=== PATIENT | male | born 1965 | race American Indian/Alaskan Native ===

== ENCOUNTER 2016-12-23 23:37 | Emergency (ER) | payer OTHER, SELFPAY ==
[2016-12-23 23:37] VITALS: BMI 35.4
[2016-12-24 00:09] VITALS: RESP 16; TEMP 98.1
[2016-12-24] MEDS ORDERED: cefTRIAXone (Rocephin) 250 mg Inj IM STA (00:22)
--- NOTE | 2016-12-24 00:32 | ED PDOC ---
Arrival/HPI - General Time Seen by Provider: 12/24/16 00:07 - History of Present Illness Narrative History of Present Illness (Text): 51 year old male with no reported medical history who presents with concerns for jesus STI after having intercourse and the condom broke. He reports non-specific symptoms of "just not feeling right down there." He denies pain with urination, discharge, polyuria, dysuria, inguinal swelling, fever, chills, arthralgia, or myalgias. He denies having sex for money, sex with other men, prostitutes, or engaging in anal sex. He admits to alcohol use, but denies illicit drug use. 12/24/16 00:25 (Sarah Lopez) Past Medical History - Provider Review Nursing Documentation Reviewed: Yes - Past History Past History: Non-Contributing - Infectious Disease Hx of Infectious Diseases: None - Tetanus Immunization Tetanus Immunization: Unknown - Past Medical History Past Medical History: No Previous - Psychiatric Hx Depression: No Hx Substance Use: No - Surgical History Hx Orthopedic Surgery: Yes (rotator cuff) - Suicidal Assessment Feels Threatened In Home Enviroment: No Family/Social History - Physician Review Nursing Documentation Reviewed: Yes Family/Social History: Unknown Family HX Smoking Status: Never Smoked Hx Alcohol Use: Yes Frequency of alcohol use: Socially Hx Substance Use: No Hx Substance Use Treatment: No Allergies/Home Meds Allergies/Adverse Reactions: Allergies No Known Allergies Allergy (Verified 06/16/13 22:09) Review of Systems - Review of Systems Constitutional: absent: Fatigue, Weight Change, Fevers Eyes: Other (eye heaviness). absent: Vision Changes, Photophobia ENT: absent: Hearing Changes, Tinnitus, Epistaxis, Sinus Congestion Respiratory: absent: SOB, Cough, Sputum Cardiovascular: absent: Chest Pain, Palpitations, Edema Gastrointestinal: absent: Abdominal Pain, Stool Changes, Constipation, Diarrhea , Nausea Genitourinary Male: absent: Dysuria, Frequency, Hematuria Musculoskeletal: absent: Arthralgias, Back Pain, Neck Pain, Joint Swelling Skin: absent: Rash, Pruritis, Skin Lesions Neurological: absent: Headache, Dizziness, Focal Weakness Endocrine: absent: Diaphoresis, Polyuria, Polydipsia Hemo/Lymphatic: absent: Easy Bleeding, Easy Bruising Psychiatric: absent: Anxiety, Depression Physical Exam Temperature: Afebrile Blood Pressure: Normal Pulse: Regular Respiratory Rate: Normal Appearance: Positive for: Well-Appearing, Non-Toxic Pain Distress: None Mental Status: Positive for: Alert and Oriented X 3 - Systems Exam Head: Present: Atraumatic, Normocephalic Pupils: Present: PERRL Extroacular Muscles: Present: EOMI Conjunctiva: Present: Injected Mouth: Present: Moist Mucous Membranes. No: Dry Pharnyx: Present: Normal. No: ERYTHEMA, EXUDATE Neck: Present: Normal Range of Motion. No: JVD, Lymphadenopathy Respiratory/Chest: Present: Clear to Auscultation, Good Air Exchange Cardiovascular: Present: Regular Rate and Rhythm, Normal S1, S2 Abdomen: Present: Normal Bowel Sounds. No: Tenderness, Distention, Peritoneal Signs, Guarding Genitourinary Male: Present: Normal External Genitalia, Other (penis is without lesions or discharge, no testicular swelling or erythema, inguinal area without any lymphadenopathy). No: Penile Discharge, Testicle Tenderness, Penile Swelling, Masses, Erythema, Testicle Swelling Back: Present: Normal Inspection. No: CVA Tenderness Upper Extremity: Present: Normal Inspection. No: Cyanosis, Edema Lower Extremity: Present: Normal Inspection. No: Edema, CALF TENDERNESS Neurological: Present: CN II-XII Intact, Speech Normal, Motor Func Grossly Intact, Normal Sensory Function Skin: Present: Warm, Dry, Normal Color Lymphatic: No: Inguinal Adenopathy Psychiatric: Present: Alert, Oriented x 3, Normal Insight, Normal Concentration Vital Signs Temp Pulse Resp BP Pulse Ox 12/24/16 01:45 87 16 132/85 99 12/24/16 00:09 98.1 F 85 16 144/73 98 Medical Decision Making ED Course and Treatment: Patient is reports and appears to have had no adverse effects from antibiotics. Patient is agreeable to discharge. 12/24/16 01:03 (Sarah Lopez) Impression: Pt seen and evaluated with medical doctor md. Pt presented to the Emergency department for STD prophylaxis. Pt states he became concerned after his condom broke during sexual intercourse tonight. Aware and agree with HPI, clinical findings, plan, and management. Plan: -- Chlamydia/GC RNA -- Rocephin -- Zithromax -- Reassess and disposition (Sukhwinder Elliott) - Medication Orders Current Medication Orders: Discontinued Medications Azithromycin (Zithromax) 1,000 mg PO STAT STA PRN Reason: Protocol Stop: 12/24/16 00:24 Last Admin: 12/24/16 00:48 Dose: 1,000 mg Ceftriaxone Sodium (Rocephin) 250 mg IM STAT STA PRN Reason: Protocol Stop: 12/24/16 00:23 Last Admin: 12/24/16 00:49 Dose: 250 mg IM Administration Charges Document 12/24/16 00:49 YP (Rec: 12/24/16 00:49 YP [id number]) Injection Site MAR Injection Site Left Vastus Lateralis Charges for Administration # of IM Administrations 1 Disposition/Present on Arrival - Present on Arrival Any Indicators Present on Arrival: No History of DVT/PE: No History of Uncontrolled Diabetes: No Urinary Catheter: No History of Decub. Ulcer: No History Surgical Site Infection Following: None - Disposition Have Diagnosis and Disposition been Completed?: Yes Disposition Time: 01:26 Patient Plan: Discharge - Disposition Diagnosis: STI (sexually transmitted infection) Disposition: HOME/ ROUTINE Condition: GOOD Discharge Instructions (ExitCare): Sexually Transmitted Diseases (ED), Condom Use (ED), Safe Sex (ED) Additional Instructions: 1) Please follow up with your Primary Medical Doctor within one week. 2) Please practice safe sex practices. 3) Please return to the Emergency Department for any worsening symptoms. Referrals: PCP,NO [Primary Care Provider] - Follow up with primary Forms: [employer] (Macedonian)
[2016-12-24 01:49] VITALS: BP 132/85; PULSE 87; O2SAT 99
== END 2016-12-24 01:49 | disposition home or self-care (01) ==
LOC: ED 23:37
DX: Z20.2 Contact with and (suspected) exposure to infections with a predominantly sexual mode of transmission (principal)
CPT/HCPCS: 87491; 87591; 96372; 99284; J0696